=== PATIENT | female | born 1950 | race Two or more races ===

== ENCOUNTER 2017-09-17 09:59 | Outpatient (CLI) | payer OTHER | END 2017-09-18 09:59 | disposition home or self-care (01) | LOC: LAB 09:59 | DX: N39.0 Urinary tract infection, site not specified (principal); M81.0 Age-related osteoporosis without current pathological fracture; E78.4 Other hyperlipidemia; E03.8 Other specified hypothyroidism; Z11.1 Encounter for screening for respiratory tuberculosis ==

== ENCOUNTER 2017-09-17 15:23 | Outpatient (CLI) | payer OTHER | END 2017-09-17 15:25 | disposition home or self-care (01) | LOC: SONOGRAMA 15:23 | DX: R10.2 Pelvic and perineal pain (principal) ==

== ENCOUNTER → 2017-09-18 | Outpatient (CLI) | payer OTHER | END | disposition home or self-care (01) | LOC: LAB 13:54 | DX: N39.0 Urinary tract infection, site not specified (principal); M81.0 Age-related osteoporosis without current pathological fracture; E78.4 Other hyperlipidemia; E03.8 Other specified hypothyroidism; Z11.1 Encounter for screening for respiratory tuberculosis ==

== ENCOUNTER 2017-09-19 11:13 | Outpatient (CLI) | payer OTHER | END 2017-09-19 11:23 | disposition home or self-care (01) | LOC: MAMO-SONO 11:13 | DX: Z12.31 Encounter for screening mammogram for malignant neoplasm of breast (principal); Z87.898 Personal history of other specified conditions; N60.11 Diffuse cystic mastopathy of right breast; N60.12 Diffuse cystic mastopathy of left breast ==

== ENCOUNTER 2017-09-26 08:22 | Outpatient (CLI) | payer OTHER | END 2017-09-26 08:50 | disposition home or self-care (01) | LOC: TOM 08:22 | DX: K30 Functional dyspepsia (principal); K44.9 Diaphragmatic hernia without obstruction or gangrene; K43.0 Incisional hernia with obstruction, without gangrene; R10.30 Lower abdominal pain, unspecified | CPT/HCPCS: 74178; Q9965 ==

== ENCOUNTER 2018-03-19 18:56 | Emergency (ER) | payer OTHER ==
[~2018-03-19] VITALS: Ht 165.1 cm; Wt 81.2 kg
[2018-03-20] MEDS ORDERED: KETO10TA2 PO (03:23)
[2018-03-20] MEDS ORDERED: CONEX TABLET1 EACH PO (04:11)
== END 2018-03-20 03:16 | disposition home or self-care (01) ==
LOC: ER 18:56
DX: G44.209 Tension-type headache, unspecified, not intractable (principal)

== ENCOUNTER → 2018-08-12 | Outpatient (CLI) | payer OTHER ==
[~2018-08-12] MED LIST: CONEX TABLET1 EACH PO; KETO10TA2 PO
== END | disposition home or self-care (01) ==
LOC: RAD 16:29
DX: M54.5 Low back pain (principal)

== ENCOUNTER 2018-09-02 13:40 | Outpatient (CLI) | payer OTHER | END 2018-09-02 13:48 | disposition home or self-care (01) | LOC: RAD 13:40 | DX: M17.0 Bilateral primary osteoarthritis of knee (principal) ==

== ENCOUNTER 2018-12-09 17:48 | Outpatient (CLI) | payer OTHER | END 2018-12-09 17:54 | disposition home or self-care (01) | LOC: RAD 17:48 | DX: M15.0 Primary generalized (osteo)arthritis (principal); M25.562 Pain in left knee ==

== ENCOUNTER 2019-06-29 08:22 | Outpatient (CLI) | payer OTHER | END 2019-06-29 16:49 | disposition home or self-care (01) | LOC: SONOGRAMA 08:22 → MAMO-SONO 08:45 → SONOGRAMA 16:49 | DX: R10.13 Epigastric pain (principal) ==

== ENCOUNTER 2019-11-11 17:35 | Outpatient (CLI) | payer OTHER | END 2019-11-11 17:40 | disposition home or self-care (01) | LOC: RAD 17:35 | DX: M19.011 Primary osteoarthritis, right shoulder (principal); M19.012 Primary osteoarthritis, left shoulder ==

== ENCOUNTER 2020-06-19 13:41 | Outpatient (CLI) | payer OTHER | END 2020-06-19 13:48 | disposition home or self-care (01) | LOC: NUCLEAR 13:41 | PROVIDERS: ATTEND Internal Medicine Rheumatology | DX: M81.0 Age-related osteoporosis without current pathological fracture (principal) ==

== ENCOUNTER 2020-07-25 13:34 | Outpatient (CLI) | payer OTHER | END 2020-07-25 13:36 | disposition home or self-care (01) | LOC: RAD 13:34 | PROVIDERS: ATTEND Internal Medicine Rheumatology | DX: J98.4 Other disorders of lung (principal) ==

== ENCOUNTER 2021-08-17 16:13 | Outpatient (CLI) | payer OTHER | END 2021-08-17 16:17 | disposition home or self-care (01) | LOC: RAD 16:13 | PROVIDERS: ATTEND Physical Medicine & Rehabilitation | DX: M17.11 Unilateral primary osteoarthritis, right knee (principal); M17.12 Unilateral primary osteoarthritis, left knee ==

== ENCOUNTER 2021-12-31 15:59 | Outpatient (CLI) | payer OTHER | END 2021-12-31 16:00 | disposition home or self-care (01) | LOC: RAD 15:59 | PROVIDERS: ATTEND Physical Medicine & Rehabilitation | DX: M17.11 Unilateral primary osteoarthritis, right knee (principal); M54.50 Low back pain, unspecified; M25.511 Pain in right shoulder ==

== ENCOUNTER 2022-10-03 11:53 | Outpatient (CLI) | payer OTHER | END 2022-10-03 11:58 | disposition home or self-care (01) | LOC: MAMO 607 11:53 | PROVIDERS: ATTEND Obstetrics & Gynecology Gynecology | DX: N60.11 Diffuse cystic mastopathy of right breast (principal); N60.12 Diffuse cystic mastopathy of left breast; R10.2 Pelvic and perineal pain ==

== ENCOUNTER 2022-12-30 14:04 | Outpatient (CLI) | payer OTHER | END 2022-12-30 14:10 | disposition home or self-care (01) | LOC: RAD 14:04 | PROVIDERS: ATTEND General Practice | DX: M25.572 Pain in left ankle and joints of left foot (principal); M79.672 Pain in left foot ==

== ENCOUNTER → 2023-06-30 | Outpatient (CLI) | payer OTHER | END | disposition home or self-care (01) | LOC: SONOGRAMA 10:22 | PROVIDERS: ATTEND Obstetrics & Gynecology Gynecology | DX: N64.4 Mastodynia (principal); N60.11 Diffuse cystic mastopathy of right breast; N60.12 Diffuse cystic mastopathy of left breast ==

== ENCOUNTER 2023-07-11 12:33 | Outpatient (CLI) | payer OTHER | END 2023-07-11 13:59 | disposition home or self-care (01) | LOC: RAD 12:33 | PROVIDERS: ATTEND Internal Medicine Rheumatology | DX: M17.0 Bilateral primary osteoarthritis of knee (principal) ==

== ENCOUNTER 2023-12-24 09:58 | Outpatient (CLI) | payer OTHER | END 2023-12-24 10:01 | disposition home or self-care (01) | LOC: MAMO-SONO 09:58 | PROVIDERS: ATTEND Internal Medicine | DX: N60.11 Diffuse cystic mastopathy of right breast (principal); N60.12 Diffuse cystic mastopathy of left breast; Z12.31 Encounter for screening mammogram for malignant neoplasm of breast; M54.2 Cervicalgia; M25.511 Pain in right shoulder ==

== ENCOUNTER 2024-10-11 11:34 | Outpatient (CLI) | payer OTHER | END 2024-10-11 11:41 | disposition home or self-care (01) | LOC: SONOGRAMA 11:34 | PROVIDERS: ATTEND Internal Medicine Rheumatology | DX: E04.1 Nontoxic single thyroid nodule (principal) ==

== ENCOUNTER 2024-11-25 09:18 | Emergency (ER) | payer OTHER ==
[~2024-11-25] VITALS: Ht 165.1 cm; Wt 68.0 kg
[2024-11-25] MEDS ORDERED: 0.9 % SODIUM CHLORIDE 1,000 ML IV SCH (09:49)
[2024-11-25] MEDS ORDERED: ONDANSETRON HCL 2 MG/ML VIAL IV STA (09:49)
[2024-11-25] MEDS ORDERED: KETOROLAC TROMETHAMINE 30 MG VIAL ONE (09:57)
[2024-11-25] MEDS ORDERED: ONDANSETRON HCL 2 MG/ML VIAL ONE (09:58)
[2024-11-25] MEDS ORDERED: KETOROLAC TROMETHAMINE 30 MG VIAL IV ONE (10:00)
[2024-11-25 10:59] LABS: HEMATOCRIT 41.4 % (36.0-45.00); HEMOGLOBIN 13.9 g/dL (12.0-15.00); MEAN CELL VOLUME 88.4 fL (80.00-100.00); MEAN CORPUSCULAR HEMOGLOBIN 29.7 pg (27.00-32.0); MEAN CORPUSCULAR HGB CONC 33.6 g/dl (32.0-36.0); PLATELET COUNT 257 K/uL (150-450); RED BLOOD COUNT 4.69 M/uL (4.00-6.00); RED CELL DISTRIBUTION WIDTH 13.9 % (11.5-14.5)
[2024-11-25 11:25] LABS: ALBUMIN 3.8 gm/dL (3.4-5.0); BILIRUBIN TOTAL 0.66 mg/dL (0.3-1.2); CALCIUM 9.5 mg/dL (8.5-10.1); CREATININE SERUM 0.8 mg/dL (0.55-1.02); GFR 70.12; GLOBULINA 3.2 G/DL (2.4-3.5); POTASSIUM 4.23 mEq/L (3.5-5.1)
[2024-11-25 12:11] LABS: PH,URINE 7.5 (5.0-8.0); URINE APPEARANCE Clear; URINE BILIRRUBIN Negative (NEGATIVE); URINE BLOOD Negative; URINE COLOR Yellow; URINE GLUCOSE Negative (NEGATIVE); URINE KETONE Negative (NEGATIVE); URINE LEUKOCYTE Negative; URINE NITRATE Negative; URINE PROTEIN Negative (NEGATIVE); URINE UROBILINOGEN 0.2 E.U./dl
[2024-11-25 12:19] LABS: URINE BACTERIA 12.2 uL (0.0-1933); URINE RBC 3.5 uL (0.0-20.8); URINE WBC 2.5 uL (0.0-23.2)
[2024-11-25 12:48] LABS: URINE CAST 0.29 uL (0.0-1.40); URINE EPITHELIAL CELLS 0.9 uL (0.0-38.8)
== END 2024-11-25 13:11 | disposition home or self-care (01) ==
LOC: ER 09:18
PROVIDERS: Emergency Medicine
DX: K52.89 Other specified noninfective gastroenteritis and colitis (principal); G44.209 Tension-type headache, unspecified, not intractable; R10.9 Unspecified abdominal pain
CPT/HCPCS: 36415; 96365; 96366; 99282; J1885; J2405; J7030

== ENCOUNTER 2025-02-24 12:31 | Outpatient (CLI) | payer OTHER | END 2025-02-24 12:33 | disposition home or self-care (01) | LOC: RAD 12:31 | PROVIDERS: ATTEND General Practice | DX: R07.9 Chest pain, unspecified (principal); R05.9 Cough, unspecified ==

== ENCOUNTER 2025-03-26 08:56 | Emergency (ER) | payer OTHER ==
[~2025-03-26] VITALS: Ht 177.8 cm; Wt 73.5 kg
[2025-03-26 09:08] VITALS: BP 124/78; O2SAT 99
[2025-03-26] MEDS ORDERED: LIPITOR20 MG PO (09:09)
[2025-03-26] MEDS ORDERED: BUTALB/ACETAMINOPHEN/CAFFEINE 1 TAB TABLET PO ONE ×4 (09:45→13:45)
[2025-03-26] MEDS ORDERED: FAMOTIDINE/PF 20 MG/2 ML VIAL IV PUSH ONE (09:45)
[2025-03-26] MEDS ORDERED: ONDANSETRON HCL 2 MG/ML VIAL IV ONE (09:45)
[2025-03-26] MEDS ORDERED: 0.9 % SODIUM CHLORIDE 500 ML IV SCH (09:45)
[2025-03-26] MEDS ORDERED: ONDANSETRON HCL 2 MG/ML VIAL ONE (10:17)
[2025-03-26] MEDS ORDERED: FAMOTIDINE/PF 20 MG/2 ML VIAL ONE (10:17)
[2025-03-26 10:51] LABS: BASO % 0.5 % (0.1-1.2); EOS # 0.02 (0.04-0.54); EOS % 0.2 % (0.7-7.0); LYMPH # 1.15 (1.18-3.74); LYMPH % 14.2 % (19.3-53.1); MEAN PLATELET VOLUME 9.70 fl (9.4-12.4); MONO # 0.31 (0.24-0.82); MONO % 3.8 % (4.7-12.5); NEUT # 6.58 (1.56-6.13); NEUT % 81.1 % (34.0-71.1); RED CELL DISTRIBUTION WIDTH 13.4 % (11.6-14.4)
[2025-03-26 11:19] LABS: ALT/SGPT 22.0 U/L (12-78); AST/SGOT 19.0 U/L (15-37); BILIRUBIN TOTAL 0.37 mg/dL (0.3-1.2); BUN CREA RATIO 19.0 (7.0-25.0); CREATININE SERUM 0.74 mg/dL (0.55-1.02); GFR 76.51; GLOBULINA 3.3 G/DL (2.4-3.5); GLUCOSE FASTING 115.0 mg/dL (65-100); OSMOLALITY SERUM 277.0 MOSM/KG (275-295)
[2025-03-26 11:25] LABS: URINE APPEARANCE Clear; URINE BILIRRUBIN Negative (NEGATIVE); URINE BLOOD Negative; URINE COLOR Yellow; URINE GLUCOSE Negative (NEGATIVE); URINE KETONE Negative (NEGATIVE); URINE LEUKOCYTE Negative; URINE NITRATE Negative; URINE PROTEIN Negative (NEGATIVE); URINE UROBILINOGEN 0.2 E.U./dl
[2025-03-26 11:30] LABS: URINE BACTERIA 7.1 uL (0.0-1933); URINE RBC 3.9 uL (0.0-20.8)
[2025-03-26 11:51] LABS: URINE CAST 0.14 uL (0.0-1.40); URINE EPITHELIAL CELLS 0.1 uL (0.0-38.8); URINE WBC 0.6 uL (0.0-23.2)
[2025-03-26] MEDS ORDERED: KETOROLAC TROMETHAMINE 30 MG VIAL ONE (13:34)
[2025-03-26] MEDS ORDERED: KETOROLAC TROMETHAMINE 30 MG VIAL IV ONE (13:45)
== END 2025-03-26 18:22 | disposition home or self-care (01) ==
LOC: ER 08:56
PROVIDERS: Emergency Medicine
DX: G44.209 Tension-type headache, unspecified, not intractable (principal)
CPT/HCPCS: 36415; 96365; 96366; 99282; J1885; J2405; J3490; J7042

== ENCOUNTER 2025-04-28 12:06 | Outpatient (CLI) | payer OTHER ==
[~2025-04-28 12:06] MED LIST changes: +LIPITOR20 MG PO
== END 2025-04-28 12:11 | disposition home or self-care (01) ==
LOC: RAD 12:06
PROVIDERS: ATTEND Physical Medicine & Rehabilitation
DX: M17.11 Unilateral primary osteoarthritis, right knee (principal); M17.12 Unilateral primary osteoarthritis, left knee

== ENCOUNTER 2025-05-25 14:13 | Outpatient (CLI) | payer OTHER | END 2025-05-25 14:16 | disposition home or self-care (01) | LOC: RAD 14:13 | PROVIDERS: ATTEND General Practice | DX: S50.12XA Contusion of left forearm, initial encounter (principal); S40.012A Contusion of left shoulder, initial encounter; S50.02XA Contusion of left elbow, initial encounter ==

== ENCOUNTER 2025-06-04 04:45 | Emergency (ER) | payer OTHER ==
[~2025-06-04] VITALS: Ht 170.2 cm; Wt 74.4 kg
[2025-06-04] MEDS ORDERED: HYOSCYAMINE SULFATE 0.125 MG TAB.SUBL SL STA (06:14)
[2025-06-04] MEDS ORDERED: ONDANSETRON HCL 2 MG/ML VIAL IV STA (06:14)
[2025-06-04] MEDS ORDERED: PROMETHAZINE HCL 50 MG/ML AMPUL IM STA (06:15)
[2025-06-04] MEDS ORDERED: LACTOBACILLUS ACIDOPHILUS 1 CAP CAP PO STA (06:16)
[2025-06-04] MEDS ORDERED: 0.9 % SODIUM CHLORIDE 1,000 ML IV ONE (06:30)
[2025-06-04] MEDS ORDERED: FAMOTIDINE/PF 20 MG/2 ML VIAL IV PUSH STA (06:54)
[2025-06-04] MEDS ORDERED: ONDANSETRON HCL 2 MG/ML VIAL ONE (07:09)
[2025-06-04] MEDS ORDERED: HYOSCYAMINE SULFATE 0.125 MG TAB.SUBL ONE (07:09)
[2025-06-04] MEDS ORDERED: LACTOBACILLUS ACIDOPHILUS 1 CAP CAP PO ONE (07:10)
[2025-06-04] MEDS ORDERED: FAMOTIDINE/PF 20 MG/2 ML VIAL ONE (07:10)
[2025-06-04] MEDS ORDERED: ACETAMINOPHEN 500 MG GEL..CAP PO ONE (07:38)
[2025-06-04 08:03] LABS: BASO % 0.3 % (0.1-1.2); EOS # 0.05 (0.04-0.54); EOS % 0.6 % (0.7-7.0); LYMPH # 1.65 (1.18-3.74); LYMPH % 18.4 % (19.3-53.1); MEAN PLATELET VOLUME 9.40 fl (9.4-12.4); MONO # 0.40 (0.24-0.82); MONO % 4.5 % (4.7-12.5); NEUT # 6.81 (1.56-6.13); NEUT % 75.8 % (34.0-71.1); RED CELL DISTRIBUTION WIDTH 13.4 % (11.6-14.4)
[2025-06-04 08:29] LABS: ALT/SGPT 33.0 U/L (12-78); AST/SGOT 20.0 U/L (15-37); BILIRUBIN TOTAL 0.35 mg/dL (0.3-1.2); BUN CREA RATIO 21.0 (7.0-25.0); CREATININE SERUM 0.77 mg/dL (0.55-1.02); GFR 73.08; GLOBULINA 3.1 G/DL (2.4-3.5); GLUCOSE FASTING 117.0 mg/dL (65-100); OSMOLALITY SERUM 272.0 MOSM/KG (275-295)
[2025-06-04 09:37] LABS: COVID-19 AG NEGATIVE (NEGATIVE)
[2025-06-04 09:59] LABS: URINE APPEARANCE Clear; URINE BILIRRUBIN Negative (NEGATIVE); URINE BLOOD Negative; URINE COLOR Yellow; URINE GLUCOSE Negative (NEGATIVE); URINE KETONE Negative (NEGATIVE); URINE LEUKOCYTE Negative; URINE NITRATE Negative; URINE PROTEIN Negative (NEGATIVE); URINE UROBILINOGEN 0.2 E.U./dl
[2025-06-04 10:04] LABS: URINE BACTERIA 20.3 uL (0.0-1933); URINE WBC 1.8 uL (0.0-23.2)
[2025-06-04 10:08] LABS: URINE CAST 0.00 uL (0.0-1.40); URINE EPITHELIAL CELLS 1.0 uL (0.0-38.8); URINE RBC 1.9 uL (0.0-20.8)
[2025-06-04] MEDS ORDERED: DEXAMETHASONE SODIUM PHOSPHATE 4 MG/ML VIAL ONE (11:22)
[2025-06-04] MEDS ORDERED: KETOROLAC TROMETHAMINE 30 MG VIAL ONE (11:22)
[2025-06-04] MEDS ORDERED: DICY20TA PO (11:27)
[2025-06-04] MEDS ORDERED: FLONASE16 GM NASAL (11:27)
[2025-06-04] MEDS ORDERED: ALL DAY ALLERGY10 MG PO (11:27)
[2025-06-04] MEDS ORDERED: INTESTINEX680 M1 PO (11:27)
[2025-06-04] MEDS ORDERED: PEPCID AC20 MG PO (11:27)
[2025-06-04] MEDS ORDERED: KETOROLAC TROMETHAMINE 30 MG VIAL IU ONE (11:30)
[2025-06-04] MEDS ORDERED: DEXAMETHASONE SODIUM PHOSPHATE 4 MG/ML VIAL IV ONE (11:30)
== END 2025-06-04 12:21 | disposition home or self-care (01) ==
LOC: ER 04:45
PROVIDERS: General Practice
DX: R51.9 Headache, unspecified (principal); K52.89 Other specified noninfective gastroenteritis and colitis; R50.9 Fever, unspecified; R11.10 Vomiting, unspecified; R19.7 Diarrhea, unspecified; Z20.822 Contact with and (suspected) exposure to COVID-19
CPT/HCPCS: 36415; 70450; 96365; 96366; 99284; J1100; J1885; J2405; J3490; J7030

== ENCOUNTER 2025-07-07 11:53 | Outpatient (CLI) | payer OTHER ==
[~2025-07-07 11:53] MED LIST changes: +ALL DAY ALLERGY10 MG PO; +DICY20TA PO; +FLONASE16 GM NASAL; +INTESTINEX680 M1 PO; +PEPCID AC20 MG PO
== END 2025-07-07 11:56 | disposition home or self-care (01) ==
LOC: RAD 11:53
PROVIDERS: ATTEND Physical Medicine & Rehabilitation
DX: M54.6 Pain in thoracic spine (principal); M54.50 Low back pain, unspecified

== ENCOUNTER → 2025-08-29 | Emergency (ER) | payer OTHER ==
[~2025-08-29] VITALS: Ht 165.1 cm; Wt 74.4 kg
[~2025-08-29] MED LIST changes: +0.9 % SODIUM CHLORIDE 500 ML IV ONE; +FAMOTIDINE/PF 20 MG/2 ML VIAL IV ONE; +FAMOTIDINE/PF 20 MG/2 ML VIAL ONE; +KETOROLAC TROMETHAMINE 30 MG VIAL IU ONE; +KETOROLAC TROMETHAMINE 30 MG VIAL ONE; +METOCLOPRAMIDE HCL 5 MG/ML VIAL IV ONE; +METOCLOPRAMIDE HCL 5 MG/ML VIAL ONE
[2025-08-29 06:26] VITALS: BP 118/78; O2SAT 100
[2025-08-29 08:49] LABS: BASO % 0.6 % (0.1-1.2); EOS # 0.03 (0.04-0.54); EOS % 0.4 % (0.7-7.0); LYMPH # 1.15 (1.18-3.74); LYMPH % 15.9 % (19.3-53.1); MEAN PLATELET VOLUME 9.70 fl (9.4-12.4); MONO # 0.36 (0.24-0.82); MONO % 5.0 % (4.7-12.5); NEUT # 5.63 (1.56-6.13); NEUT % 77.7 % (34.0-71.1); RED CELL DISTRIBUTION WIDTH 13.5 % (11.6-14.4)
[2025-08-29 09:21] LABS: COVID-19 AG NEGATIVE (NEGATIVE)
[2025-08-29 09:37] LABS: ALT/SGPT 21.0 U/L (12-78); AST/SGOT 20.0 U/L (15-37); BILIRUBIN TOTAL 0.41 mg/dL (0.3-1.2); BUN CREA RATIO 9.0 (7.0-25.0); CREATININE SERUM 0.78 mg/dL (0.55-1.02); GFR 72.0; GLOBULINA 3.0 G/DL (2.4-3.5); GLUCOSE FASTING 110.0 mg/dL (65-100); OSMOLALITY SERUM 274.0 MOSM/KG (275-295)
[2025-08-29 10:26] LABS: URINE APPEARANCE Clear; URINE BILIRRUBIN Negative (NEGATIVE); URINE BLOOD Negative; URINE COLOR Yellow; URINE GLUCOSE Negative (NEGATIVE); URINE KETONE Negative (NEGATIVE); URINE LEUKOCYTE Negative; URINE NITRATE Negative; URINE PROTEIN Negative (NEGATIVE); URINE UROBILINOGEN 0.2 E.U./dl
[2025-08-29 10:33] LABS: URINE BACTERIA 5.7 uL (0.0-1933); URINE RBC 2.9 uL (0.0-20.8)
[2025-08-29 10:37] LABS: URINE CAST 0.14 uL (0.0-1.40); URINE EPITHELIAL CELLS 0.4 uL (0.0-38.8); URINE WBC 1.5 uL (0.0-23.2)
== END | disposition home or self-care (01) ==
LOC: ER 06:08
PROVIDERS: Emergency Medicine
DX: R51.9 Headache, unspecified (principal); Z20.822 Contact with and (suspected) exposure to COVID-19
CPT/HCPCS: 36415; 70450; 93005; 96365; 96366; 99284; J1885; J2765; J3490; J7042